=== PATIENT | female | born 1980 | race African-American/Black ===

== ENCOUNTER 2017-12-29 14:45 | Outpatient (RCR) | payer OTHER | END 2018-02-10 | disposition home or self-care (01) | LOC: WSPT | DX: M25.551 Pain in right hip (principal) | CPT/HCPCS: G8978-GP; G8979-GP ==

== ENCOUNTER → 2018-11-20 | Day surgery (SDC) | payer BC ==
[~2018-11-20] VITALS: Ht 160 cm; Wt 85.0 kg
[~2018-11-20] MED LIST: ESTROVEN MAX400 MCG; MULTI-VITAMIN W1 TA2 PO; OZEMPIC1 MG/0.75 SQ; PRINIVIL40 MG PO; PROBIOTIC FORMU1 CAP PO; ZOCOR 40MG40 MG PO
[2018-11-20 13:18] VITALS: BP 122/84; PULSE 78; TEMP 98.1
[2018-11-20 14:42] VITALS: BP 122/84; PULSE 88; TEMP 97.7
--- NOTE | 2018-11-20 14:42 | NUR ---
PATIENT RETURNS TO [facility] VIA CART FROM [place]. FRIEND AT BEDSIDE. VS STARTED. ALERT AND ORIENTED X 4. DENIES PAIN. DENIES NAUSEA. CRACKERS AND SPRITE GIVEN. CALL LIGHT IN REACH.
[2018-11-20 15:00] VITALS: BP 122/73; PULSE 78
[2018-11-20 15:15] VITALS: BP 126/76; PULSE 72; TEMP 97.6
--- NOTE | 2018-11-20 15:15 | NUR ---
PATIENT REMAINS STABLE. DENIES NAUSEA. IV DC'D AND PATIENT CHANGED INTO HER CLOTHES. CALL LIGHT WITHIN REACH.
[2018-11-20 15:30] VITALS: BP 124/86; PULSE 78; TEMP 98.2
--- NOTE | 2018-11-20 15:37 | NUR ---
PATIENT DISCHARGE INSTRUCTIONS GIVEN TO HER AND HER FRIEND. VERBALIZED UNDERSTANDING. AMBULATED WITH STEADY GAIT TO ELEVATOR.
== END ==
LOC: SDCO 12:59
DX: D12.5 Benign neoplasm of sigmoid colon (principal); K21.9 Gastro-esophageal reflux disease without esophagitis; E78.00 Pure hypercholesterolemia, unspecified; D50.9 Iron deficiency anemia, unspecified; E11.9 Type 2 diabetes mellitus without complications; J45.909 Unspecified asthma, uncomplicated; R93.89 Abnormal findings on diagnostic imaging of other specified body structures; I10 Essential (primary) hypertension
CPT/HCPCS: J2704; J7120